=== PATIENT | female | born 1940 | race Caucasian/White ===

== ENCOUNTER → 2017-08-17 15:19 | Outpatient (CLI) | payer MEDICARE, SELFPAY ==
--- NOTE | 2017-08-17 15:22 | US_ITS ---
STUDY: SUPERFICIAL ULTRASOUND - UPPER LEFT ARM. REASON FOR EXAM: Female, 76 years old. Mass TECHNIQUE: A superficial ultrasound was performed with real-time and static pak-scale imaging. COMPARISON: None. FINDINGS: No abnormality found. No mass. No fluid collections. Normal soft tissue echogenicity and contours. Electronically Signed: Wojciech Mcbride MD at 15:28 EDT , Service support , US/Ext Non Vasc Limited/Soft Tiss
== END ==
PROVIDERS: Family Provider Family Medicine; PCP Family Medicine; Visit Provider Family Medicine
DX: R22.32 Localized swelling, mass and lump, left upper limb (principal)
CPT/HCPCS: 76882

== ENCOUNTER 2020-06-17 16:07 | Outpatient (RCR) | payer MEDICARE, SELFPAY | END 2020-06-17 23:59 | LOC: IMMUN 16:07 | PROVIDERS: PCP Family Medicine; Visit Provider Family Medicine | DX: Z23 Encounter for immunization (principal) | CPT/HCPCS: 0011A; 0012A; 91301 ==

== ENCOUNTER → 2022-12-26 | Outpatient (CLI) | payer MEDICARE, SELFPAY | END | disposition home or self-care (01) | LOC: LABSPEC 08:00 | PROVIDERS: PCP Internal Medicine; Referring Provider Internal Medicine; Visit Provider Internal Medicine | DX: A04.72 Enterocolitis due to Clostridium difficile, not specified as recurrent (principal) | CPT/HCPCS: 87493 ==

== ENCOUNTER 2024-02-07 13:30 | Outpatient (RCR) | payer MEDICARE, SELFPAY ==
--- NOTE | 2024-01-29 16:07 | HP.PTEVAL ---
Patient's Visit Information Visit Information Visit Information: YAZ HOLT is a 83 year old F referred to Physical Therapy by ECHO Garcia with a diagnosis of L knee OA. Date of Evaluation: 01/22/24 Physical Therapist: Chas Anguiano DPT Visit Plan Frequency: 2x /Week Duration: 4 Weeks Plan: Start with extension progression of lumbar spine. Add in core strengthening and LE strengthening as able. Subjective Subjective: Pt. is here today for her initial evaluation with diagnosis of L knee OA. Pt. reports physician thinks it might be from her back, sciatica like symptoms. Pt. reports having increased pain for a few weeks, 6 weeks now. Pt. reports pain in her leg and around her knee. Pt. reports taking a steroid with some decent relief her recently. Pt. reports no mech of injury. Sleeping can been painful, but not always. Pt. is hopeful to get back to playing golf and other outdoor activities without increase in symptoms. She has stayed away from these activities secondary to her pain. She has some N/T in her L leg at the back side and around her knee. She reports occasionally it wants to give out on her, but not very frequently. Pain L knee: Pain Intensity (Out of 10): 0 Pain Intensity Range: 0 and 4 LLE: Pain Intensity (Out of 10): 3 Pain Intensity Range: 0 and 8 Objective Objective: POSTURE: pt. has decent posture in stance. No lateral wt. shift noted. Pt. has normal iliac crest heights. Slight fwrd flexed posture. Normal knee positioning. PALPATION: Pt. has no pain with palpation throughout L knee. No medial or lateral joint line. NEURO: Pt. has slight decreased achilles and patellar DTR on L side compared to R. Pt. is able to rise on heels and toes with balance aide. ROM: L Knee: 0-0-125deg. LUMBAR SPINE: flexion min loss increase NW, ext mod loss NE, SB min loss bilat NE, rotation min loss B NE. Pt. has good HS and hip flexor length. MMT: RLE: ankle 5/5 throughout; knee: ext 21.8#, flexion 14.9#; hip: flexion 11.9#, abd 9.8# LLE: ankle 5/5 throughout; knee: ext 14.5#, flexion 11.8#; hip: flexion 8.9#, abd 8.1#. GAIT: Pt. ambulates without AD. Pt. has slight flexed posture. mild increase in L knee pain with gait, but not consistently. Special Tests L/S Slump test left side: Positive L/S Slump test right side: Negative L/S Left Straight Leg Raise: Positive L/S Right Straight Leg Raise: Negative L Knee Santosh - Meniscus: Negative L Knee Anterior Drawer - ACL: Negative L Knee Posterior Drawer - PCL: Negative L Knee Valgus - MCL: Negative L Knee Varus - LCL: Negative Balance/Special Test Scores Lower Extremity Functional Score: 39 Goals Goal 1:: LTG: Pt. to be I with HEP. Goal Time Frame: 4-6 Weeks Goal 2:: LTG: Pt. to be able to stand without increase in LLE pain. Goal Time Frame: 2-4 Weeks Goal 3:: LTG: Pt. to be able to ambulate 900'+ without increase in LLE pain. Goal Time Frame: 4-6 Weeks Goal 4:: LTG: Pt. to have symmetrical strength between BLEs. Goal Time Frame: 4-6 Weeks Rehabilitation Potential Physical Therapy Diagnosis: Pt. has signs and symptoms consistent with L knee OA, but also some + signs of discogenic involvement. I will approach both with a focus on regaining her lumbar ROM and progressing LLE strengthening as tolerated. Rehabilitation Potential: Good Anticipated Interventions Patient/Client Instruction: Educate patient on: Condition, Plan of Care, Risk Factors and Benefits of Fitness Program For the Purpose of:: To improve self management, To prevent re-injury, To improve ability to perform tasks related to life management and To improve tolerance to ADL's Therapeutic Exercise to Include: Strength training, Power training, Endurance training, Flexibilty training, Gait and locomotor training, Passive ROM, Active ROM, Dynamic Lumbar Stabilization and Sea Exercises For the Purpose of:: To decrease pain, To increase ROM, To improve nutrient delivery to tissue, To increase oxygenation perfusion, To improve muscle performance and motor function, To improve ability to perform ADL's, To increase tolerance to activity/condition/position, To improve performance and independence with ADL's, To increase flexibility/ROM and To improve endurance Text: Thank you for the opportunity to evaluate your patient. For Medicare and Medicare HMO plans, please review the plan of care and approve it. It will need to be FAXED BACK to us at [phone] for Medicare purposes. For Medicare only, by signing this I certify the plan of care. Please let me know if there are questions or concerns regarding this plan of care. Physician Signature: Date:
== END 2024-02-07 19:00 | disposition home or self-care (01) ==
LOC: PT 13:30
PROVIDERS: PCP Internal Medicine; Referring Provider Physician Assistant Surgical; Visit Provider Physician Assistant Surgical
DX: M17.12 Unilateral primary osteoarthritis, left knee (principal)
CPT/HCPCS: 97110; 97161